=== PATIENT | male | born 1965 | race Caucasian/White ===

== ENCOUNTER 2025-04-25 19:53 | Emergency (ER) | payer MEDICARE, SELFPAY ==
--- OUTSIDE RECORDS SUMMARY | 2001-02-12 05:56 | XMS_ITS | Continuity of Care Document ---
Author Name [facility] Organization [facility] Care Team Providers Care Heel Packer Name Role Phone [facility] Unavailable Unavailable Problems Combined list of problems from Department of Defense and Veterans Affairs facilities. It does not include entries that were removed or entered in error. Problem Status Onset Date Problem Type Date of Resolution Comments Source Sensorineural hearing loss Active Condition [facility] Allergies, Adverse Reactions, Alerts Combined list of allergies from Department of Defense and Veterans Affairs facilities. It does not include entries that were removed or entered in error. Substance Category Reaction Severity Reaction type Status Date Reported Comments Source IBUPROFEN Propensity to adverse reactions to drug (finding) active 02/12/2001 [facility]
--- NOTE | ~2025-04-25 | XR_ITS ---
CLINICAL HISTORY: CP, SOB --- Additional Notes or Special Instructions: EKG + bloodwork first 2022 Chest X-ray, 2 Views COMPARISON: None provided FINDINGS: No consolidation. Mild bibasilar atelectasis. No pleural effusion. No pneumothorax. No cardiomegaly. No acute fracture. IMPRESSION: No acute findings. This document has been electronically signed by: Bartolo Morfin MD on 04/25/2025 21:36:26
[2025-04-25 20:11] VITALS: BP 181/118; PULSE 87; RESP 16; TEMP 37.2; O2SAT 96; BMI 45.9
--- NOTE | 2025-04-25 20:12 | ED.URI ---
HPI - URI/Sore Throat General Chief Complaint: Upper Respiratory Symptoms Stated Complaint: Flu like symptoms/Diarrhea Time Seen by Provider: 04/26/25 04:36 Source: patient and RN notes reviewed Mode of arrival: ambulatory Limitations: no limitations History of Present Illness ED Provider: Dr. Alicia Freeman HPI Narrative: 59-year-old male with extensive past medical history including CAD status post stent placement on Plavix, hypertension, hyperlipidemia, diabetes presenting with flu-like symptoms ongoing for the last several days. Describes global headache, subjective fevers, nonproductive cough, body aches, nausea without vomiting, watery diarrhea. No known sick contacts or travel. No questionable food intake. Had been feeling well previously. Denies dysuria or hematuria. Related Data Previous Rx's ?Medication ?Instructions ?Recorded ondansetron HCl 4 mg tablet 4 mg PO Q8H #10 tabs 04/26/25 Allergies Allergy/AdvReac Type Severity Reaction Status Date / Time No Known Allergies Allergy Verified 04/25/25 20:14 Review of Systems Review of Systems: Yes all other systems are reviewed and are negative (As per HPI) [facility] Past Medical History Attestation statement: The following information was validated with the patient. (HTN, DM, CAD s/p stent placement, HLD, smoker) Social History Social History Smoked in Last 30 Days: No Use of substances other than those prescribed or required for medical reasons: No Advance Directives: No Advance Directives Information Provided: Yes Do you have a plan to hurt others: No Plan Physical Exam Vital Signs: Vital Signs: Last Vital Signs Temp 97.9 F 04/26/25 07:08 Pulse 78 04/26/25 07:08 Resp 16 04/26/25 07:08 BP 155/97 H 04/26/25 07:08 Pulse Ox 94 04/26/25 07:08 O2 Del Method Room Air 04/26/25 07:08 BMI result Body Mass Index 45.9 GENERAL: Ill-Appearing, appears uncomfortable. SKIN: Normal skin color for ethnicity, warm, dry, no rashes noted. HEENT: Normocephalic, atraumatic, no stridor, dry mucous membranes, dentition intact, EOMI, PERRLA. NECK: Soft, supple, full ROM, midline structures nontender, no step-offs, no deformities, no lymphadenopathy. CHEST: Heart regular rhythm, no murmurs, symmetric chest rise and fall. PULMONARY: Clear to auscultation bilaterally, diminished at the bases, no labored breathing, no wheezes/rhales/rhonchi. ABDOMINAL: Soft, protuberant, nontender, positive bowel sounds in all quadrants. : Deferred. MUSCULOSKELETAL: Normal tone, full range of motion, no deformities, no peripheral edema. NEURO: Alert and oriented x3, CN II through XII intact, equal strength and sensation bilateral upper and lower extremities, no focal neurologic deficits. PSYCHIATRIC: Flat affect, fluid speech, good eye contact and appropriate demeanor. Course Course Course Narrative: This is an RME performed by Marc Alvarez CNP: Additional HPI, ROS, PE not included below will be deferred to primary provider. Patient is a 59-year-old male who presents to the emergency department for evaluation of headache, shortness of breath, productive cough, chest pain associated with coughing, nausea without vomiting, diarrhea, body aches over the past few days. Plan; serum labs, ECG, CXR, viral serologies Medications Administered Discontinued Medications Generic Name Dose Route Start Last Admin Trade Name Freq PRN Reason Stop Dose Admin Acetaminophen 650 mg 04/26/25 03:49 04/26/25 03:54 Acetaminophen 325 Mg Tablet PO 04/26/25 03:50 650 mg ONCE ONE Administration Ondansetron HCl 4 mg 04/26/25 04:47 04/26/25 05:07 Ondansetron Odt 4 Mg Tab.Rapdis TRANSLINGU 04/26/25 04:48 4 mg ONCE ONE Administration Medical Decision Making Medical Decision Making [facility] Narrative: Patient presents today with flu-like symptoms. Differential diagnosis includes influenza, coronavirus, pneumonia, upper respiratory infection, among others. Most importantly, this patient is not in any acute respiratory distress. They have normal oxygen levels at room air. I have discussed medication and other home therapies that will help the patient and have discussed strict return precautions. Instructed that symptoms may worsen and the patient might need re-evaluation or even hospitalization in the future, but did not show signs of this at the time of discharge. Differential Diagnosis Differential Diagnoses: The differential diagnosis associated with the presentation includes (As above) Admission/Observation Consideration of admission/observation: Escalation of care including admission/observation considered Lab Data MDM Lab Attestation statement: I reviewed the patient's lab results. Very mildly elevated white blood cell count, otherwise lab work reassuring. Cardiac enzymes are negative. 04/25/25 20:30 04/25/25 20:30 Labs: Lab Results 04/25/25 04/26/25 Range/Units 20:30 05:00 WBC 12.4 H (4.8-10.8) X10*3/uL RBC 5.70 (4.60-5.80) X10*6/uL Hgb 17.3 (14.0-18.0) g/dl Hct 47.4 (42.0-52.0) % MCV 83.2 (80.0-98.0) fL MCH 30.4 (27.0-33.0) pg MCHC 36.5 H (31.0-36.0) g/dl RDW 12.7 (11.0-16.0) % Plt Count 181 (160-400) X10*3/uL MPV 9.0 L (9.4-12.4) fL Immature Gran % (Auto) 0.4 (0.0-0.4) % Neut % (Auto) 76.4 H (45-73) % Lymph % (Auto) 12.8 L (20-40) % [place] % (Auto) 6.9 (2-11) % Eos % (Auto) 3.3 (0-4) % Baso % (Auto) 0.2 (0-2) % Lymph # (Auto) 1.6 (1.2-4.9) X10*3/uL [place] # (Auto) 0.9 (0.1-1.2) X10*3/uL Eos # (Auto) 0.4 (0.0-0.4) X10*3/uL Baso # (Auto) 0.0 (0.0-0.2) X10*3/uL Abs Immat Gran (auto) 0.05 H (0.00-0.03) X10*3/uL Absolute Neuts (auto) 9.5 H (2.0-8.3) x10*3/uL Absolute Nucleated RBC 0.000 (0.0-0.012) X10*3/uL Nucleated RBC % (auto) 0.0 (0.0-0.2) /100WBC Sodium 139 (135-145) mmol/L Potassium 4.4 (3.3-5.1) mmol/L Chloride 105 (96-108) mmol/L Carbon Dioxide 25 (22-29) mmol/L Anion Gap 13 (12-20) BUN 13 (9-16) mg/dL Creatinine 1.07 (0.5-1.4) mg/dL Estim Creat Clear Calc 94.4 Estimated GFR > 60 Random Glucose 135 H (60-115) mg/dL Calcium 9.6 (8.4-10.2) mg/dL Magnesium 2.0 (1.6-2.6) mg/dL Total Bilirubin 2.8 H (0.0-1.0) mg/dL AST 22 (5-37) U/L ALT 28 (0-40) U/L Alkaline Phosphatase 95 (39-117) U/L Troponin I High Sens < 2.7 (<3.5-35.0) ng/L B-Natriuretic Peptide 15 (<100) pg/mL Total Protein 7.6 (6.5-8.0) g/dL Albumin 4.8 (3.5-5.0) g/dL Lipase 23 (8-78) U/L Urine Color Yellow Urine Appearance Clear Urine pH 5.5 (5.0-9.0) Ur Specific [place] 1.015 (1.005-1.025) Urine Protein Trace (Neg-Trace) mg/dL Urine Glucose (UA) 250 H (Negative) mg/dL Urine Ketones Negative (Negative) mg/dL Urine Blood Negative (Negative) Urine Nitrite Negative (Negative) Ur Leukocyte Esterase Negative (Negative) Influenza Type A (PCR) NEGATIVE (Negative) Influenza Type B (PCR) NEGATIVE (Negative) RSV RNA Qual (PCR) NEGATIVE (Negative) SARS-CoV-2 RNA (RT-PCR) NEGATIVE (Negative) Independent Interpretation I performed an independent interpretation of an: EKG Interpretation: My independent interpretation of the ECG reveals normal sinus rhythm with rate of 84, normal axis, normal intervals, no ST elevations or depressions to suggest ischemic changes, no previous for comparison Radiology Impression Discussion of test interpretation with radiology: I have reviewed the radiologist's reading. Chronic Conditions Patient?s care impacted by: Diabetes, Hypertension and Other (CAD) Discharge Plan Discharge Clinical Impression: Acute viral syndrome, Diarrhea Patient Disposition: Home, Self-Care Instructions: Viral Syndrome (ED) Additional Instructions: Try to rest over the next several days. Return to the emergency department with any new or worsening symptoms including: Fevers greater than 100? for more than 5 days in a row, neck stiffness associated with a skin rash in severe headaches, inability to tolerate food or drink despite medications, any new symptom that concerns you. Call 911 with any medical emergency. Prescriptions: New ondansetron HCl 4 mg tablet 4 mg PO Q8H Qty: 10 0RF Interventions: ED Discharge Assessment Last Done: 04/26/25 07:08 Discharge Date/Time: 04/26/25 07:09 Print Language: [place]
--- NOTE | 2025-04-25 20:14 | ECG_ITS ---
Test Reason : CP SOB Blood Pressure : */* mmHG Vent. Rate : 84 BPM Atrial Rate : 84 BPM P-R Int : 188 ms QRS Dur : 78 ms QT Int : 354 ms P-R-T Axes : 63 19 16 degrees QTcB Int : 418 ms Normal sinus rhythm Normal ECG No previous ECGs available Referred By: Yessi Alvarez Electronically Signed By: Valeriano Conrad
[2025-04-25 20:35] LABS: MANUAL DIFF FLAG NO
[2025-04-25 20:36] LABS: Hematocrit 47.4 % (42.0-52.0); Hemoglobin 17.3 g/dl (14.0-18.0); Imm Gran Abs Auto 0.05 X10*3/uL (0.00-0.03); Imm Gran Pct Auto 0.4 % (0.0-0.4); Lymphocytes Absolute Auto 1.6 X10*3/uL (1.2-4.9); Mean Corpuscular HGB Conc 36.5 g/dl (31.0-36.0); Mean Corpuscular Hemoglobin 30.4 pg (27.0-33.0); Mean Corpuscular Volume 83.2 fL (80.0-98.0); NRBC Abs Auto 0.000 X10*3/uL (0.0-0.012); NRBC Pct Auto 0.0 /100WBC (0.0-0.2); Platelet Count 181 X10*3/uL (160-400); Red Blood Count 5.70 X10*6/uL (4.60-5.80); White Blood Count 12.4 X10*3/uL (4.8-10.8)
[2025-04-25 20:51] LABS: Alanine Aminotransferase 28 U/L (0-40); Albumin Level 4.8 g/dL (3.5-5.0); Alkaline Phosphatase 95 U/L (39-117); Anion Gap 13 (12-20); Aspartate Amino Transferase 22 U/L (5-37); Blood Urea Nitrogen 13 mg/dL (9-16); Calcium 9.6 mg/dL (8.4-10.2); Carbon Dioxide 25 mmol/L (22-29); Chloride 105 mmol/L (96-108); Creatinine Clr Calc Pharmacy 94.4; Estimated Glomerular Filt Rate > 60; Lipase 23 U/L (8-78); Magnesium 2.0 mg/dL (1.6-2.6); Potassium 4.4 mmol/L (3.3-5.1); Sodium 139 mmol/L (135-145); Total Protein 7.6 g/dL (6.5-8.0)
[2025-04-25 20:56] LABS: B Type Natriuretic Peptide 15 pg/mL (<100)
[2025-04-25 21:01] LABS: Troponin-I High Sensitivity < 2.7 ng/L (<3.5-35.0)
[2025-04-25 21:12] LABS: Resp Syncy Virus RNA Qual PCR NEGATIVE (Negative); SARS COV2 PCR INHOUSE NEGATIVE (Negative)
[2025-04-26 00:34] VITALS: BP 183/111; PULSE 93; RESP 19; TEMP 36.4; O2SAT 95
[2025-04-26 03:07] VITALS: BP 148/90; PULSE 78; RESP 14; TEMP 36.6; O2SAT 95
--- OUTSIDE RECORDS SUMMARY | 2025-04-26 03:10 | XMS_ITS | Clinical Summary ---
Author Organization [address] Address [address] [place] [phone] Phone Care Team Providers Care Colloid Mill Operator Name Role Phone Khoi De Luna MD Primary Care Provider Allergies No known active allergies Medications atorvastatin (LIPITOR) 80 mg tablet Take 1 tablet (80 mg total) by mouth 1 (one) time each day in the evening. 10/06/2024 Active carvediloL (COREG) 12.5 mg tablet Take 1 tablet (12.5 mg total) by mouth 2 (two) times a day. 11/29/2024 Active citalopram (CeleXA) 20 mg tablet Take 1 tablet (20 mg total) by mouth 1 (one) time each day. 10/06/2024 Active ezetimibe (ZETIA) 10 mg tablet Take 1 tablet (10 mg total) by mouth 1 (one) time each day. 10/07/2024 Active lamoTRIgine (LaMICtal) 25 mg tablet Take 1 tablet (25 mg total) by mouth 1 (one) time each day. 10/06/2024 Active metFORMIN (GLUCOPHAGE) 500 mg tablet Take 2 tablets (1,000 mg total) by mouth 2 (two) times a day with meals. 10/06/2024 Active Trulicity 1.5 mg/0.5 mL pen injector injection Inject 0.5 mL (1.5 mg total) under the skin 1 (one) time per week. 2 mL 5 03/24/2025 Active Active Problems Problem Noted Date Diagnosed Date Severe obesity (CMS/HCC V24, CMS/HCC V28) 2024 Bipolar disorder (CMS/HCC V24, CMS/HCC V28) 11/21 Tobacco user 12/16/2024 Type 2 diabetes mellitus wit hout complication, without long-term current use of insulin ([facility] [place], [facility] V28) 12/16/2024 Hypercholesterolemia 12/16/2024 Primary hypertension 12/16/2024 Coronary artery disease due to lipid rich plaque 12/16/2024 Encounters Date Type Department Care Team Description 03/24/2025 9:00 AM EDT Office Visit Adult [address] [phone] Lena Lenug PA Primary hypertension (Primary Dx); Elevated blood pressure reading; Hypercholesterolemia; Type 2 diabetes mellitus without complication, without long-term current use of insulin ([facility] [place], [facility] V28); Coronary artery disease due to lipid rich plaque; Bipolar affective disorder, current episode mixed, current episode severity unspecified ([facility] [place], [facility] V28); KIARA (obstructive sleep apnea); Need for hepatitis C screening test; Screening for HIV (human immunodeficiency virus); Screening PSA (prostate specific antigen); Colon cancer screening 03/17/2025 Telephone Adult [address] [phone] Khoi De Luna MD Advice Only; c-pap machine 02/08/2025 3:45 PM EDT Consult Orthopedic Surgery - [address] [place] [phone] Claribel Garcia PA Primary osteoarthritis of both first carpometacarpal joints (Primary Dx); De Quervain's tenosynovitis 01/27/2025 10:00 AM EDT Office Visit [address] [phone] Cosmo Pulido PA Closed de Quervain's fracture of right wrist, initial encounter (Primary Dx) from Last 3 Months Social History Tobacco Use Types Packs/Day Years Used Date Smoking Tobacco: Every Day Cigarettes Passive Smoke Exposure: Never Smokeless Tobacco: Never Tobacco Cessation:Ready to Q uit: Not Asked; Counseling Given: Not Answered Housing Instability Answer Date Recorde d Are you worried that in the next 2 months you may not have stable housing? No 03/24/2025 Food Access & Nutrition Answer Date Rec orded Do you have access to a vari ety of food including fruits and vegetables? Yes 03/24/2025 Access to Healthcare Answer Date Record ed Within the last 3 months, ho w many times did you visit the emergency department for your medical care? 0 03/24/2025 Health Literacy Answer Date Recorded How often do you need to hav e someone help you when you read instructions, pamphlets, or other written material from your doctor or pharmacy? Never 03/24/2025 Caregiver: How often do you need to have someone help you when you read instructions, pamphlets, or other written material from your doctor or pharmacy? Not on file 03/24/2025 Financial Risk Answer Date Recorded How hard is it for you to pa y for the very basics like food, housing, medical care, and air conditioning / heating? Not very hard 03/24/2025 Transportation Answer Date Recorded Has the lack of transportati on kept you from meetings, work, or from getting things needed for daily living? No Has the lack of transportati on kept you from medical appointments or from getting medications? No 03/24/2025 Social Isolation Answer Date Recorded How often do you feel lonely or isolated from th ose around you? Never 03/24/2025 Food Risk Answer Date Recorded Within the past 12 months we worried whether our food would run out before we got money to buy more. Never true 03/24/2025 Within the past 12 months th e food we bought just didn't last and we didn't have money to get more. Never true 03/24/2025 Dependent Care Answer Date Recorded Do you need help finding or paying for care for your loved ones. For example, early childhood aide classroom or elderly care for an older adult? No 03/24/2025 Education Answer Date Recorded Do you think completing more education or training, like finishing a GED, going to college, or learning a trade, would be helpful for you? No 03/24/2025 Employment and Income Answer Date Recor ded During the last four weeks, have you been actively looking for work? No 03/24/2025 Living Situation Answer Date Recorded What is your living situation? 0 03/24/2025 Sex and Gender Information Value Date Recorded Sex Assigned at Not on file Legal Sex Male 6:58 PM EST Gender Identity Not on file Sexual Orientation Not on file Obstetrics History Last Filed Vital Signs Vital Sign Reading Time Taken Comments Blood Pressure 154/95 03/24/2025 8:50 AM EDT avg. blood pressure. Pulse 83 03/24/2025 8:48 AM EDT Temperature 36.4 C (97.5 F) 03/24/2025 8:48 AM EDT provider recheck Respiratory Rate 15 03/24/2025 8:48 AM EDT Oxygen Saturation 96% 01/27/2025 10: 04 AM EDT Inhaled Oxygen Concentration - - Weight 129 kg (284 lb 3.2 oz) 03/24/2025 8:48 AM EDT Height 167.6 cm (5' 6 ) 03/24/2025 8:48 AM EDT Body Mass Index 45.87 03/24/2025 8:48 AM EDT Plan of Treatment Upcoming Encounters Date Type Department Care Team (Late st Contact Info) Description 06/28/2025 10:00 AM EDT Appointment [facility] [address] [place] [phone] Chaim Barajas DO [address] [id number] 07/15/2025 11:30 AM EDT Office Visit Adult Medicine [facility] [address] [place] [phone] Khoi De Luna MD [address] [place] [address] Health Maintenance Due Date Last Done Comments Diabetes: Annual GFR (Glomer ular Filtration Rate) 1965 Diabetes: Annual Foot Exam 1975 Diabetes: Annual Retina Eye Exam 1975 DTaP,Tdap,and Td Vaccines (1 - Tdap) 1984 Hepatitis B Vaccines (1 of 3 - 19+ 3-dose series) 1984 Pneumococcal Vaccine: 50+ Ye ars (1 of 2 - PCV) 1984 Pneumococcal Vaccine: Pediat rics (0 to 5 Years) and At-Risk Patients (6 to 49 Years) (1 of 2 - PCV) 1984 Zoster Vaccines (1 of 2) 2015 COVID-19 Vaccine ( - 2023-2 5 season) 2024 Cholesterol Screening (Lipid Panel) 12/10/2024 Colorectal Cancer Screening: Colonoscopy 12/10/2024 HIV Screening 12/10/2024 Hepatitis C Screening 12/10/2024 Medicare Annual Wellness Visit 12/10/2024 Diabetes: Annual Urine Albumin-Creatinine Ratio (uACR) 12/16/2024 Diabetes: Blood Sugar Contro l Test (HGBA1C) 12/16/2024 Hypertension/CHF/CAD Annual BMP Blood Test 12/16/2024 Influenza Vaccine (#1) 2025 Depression Screening 03/24/2026 03/24/2025 Social Influencers of Health Screening 03/24/2026 03/24/2025 RSV Immunization Adult Patie nts (1 - 1-dose 75+ series) 2040 HIB Vaccines Aged Out No longer eligi ble based on patient's age to complete this topic HPV Vaccines Aged Out No longer eligi ble based on patient's age to complete this topic Hepatitis A Vaccines Aged Out No long er eligible based on patient's age to complete this topic IPV Vaccines Aged Out No longer eligi ble based on patient's age to complete this topic MMR Vaccines Aged Out No longer eligi ble based on patient's age to complete this topic Meningococcal ACWY Vaccine Aged Out N o longer eligible based on patient's age to complete this topic Meningococcal B Vaccine Aged Out No l onger eligible based on patient's age to complete this topic RSV Immunization Patients Un pilar 20 months Aged Out No longer eligible b ased on patient's age to complete this topic Varicella Vaccines Aged Out No longer eligible based on patient's age to complete this topic Procedures Procedure Name Priority Date/Time Associated Diagnosis Comments XR WRIST 3+ VIEWS BILAT Routine 02/08/2025 3:57 PM EDT Closed de Quervain's fracture of right wrist, initial encounter from Last 3 Months Results * XR Wrist 3+ Views bilat (02/08/2025 3:57 PM EDT) Anatomical Region Laterality Modality Upper Extremities, Wrist Bilateral Compute d Radiography Narrative 02/08/2025 4:34 PM EDT Date of Visit: 02/08/2025 Reason for visit: Bilateral wrist pain Views: AP, lateral, oblique bilateral wrist. Comparison:none Findings: No fracture, dislocation or lytic lesions. Moderate osteoarthritis bilateral thumb CMC joints Impression: Osteoarthritis of bilateral thumb basal joint us Claribel LEIJA IMG XR PROCEDURES Final Resul t from Last 3 Months Insurance * Guarantor: Benjamin Jameson Account Type Relation to Patient Date of Phone Billing Address Personal/Family Self [address] [place] [id number] MEDICARE [place]ICAID [place] Care Teams Colloid Mill Operator Relationship Specialty Start Date End Date Khoi De Luna MD [address] [place] [id number] PCP - General Internal Medicine 07/20/24
[2025-04-26 05:14] LABS: Appearance Urine Clear; Glucose Urine UA 250 mg/dL (Negative); PH 5.5 (5.0-9.0); Specific Gravity - Urine 1.015 (1.005-1.025)
[2025-04-26 06:11] VITALS: BP 155/97; PULSE 78; TEMP 36.5; O2SAT 94
[2025-04-26 07:07] VITALS: O2SAT 99
[2025-04-26 07:08] VITALS: BP 155/97; PULSE 78; RESP 16; TEMP 36.6; O2SAT 94
== END 2025-04-26 07:09 | disposition home or self-care (01) ==
PROVIDERS: Nurse Practitioner Family; Emergency Provider Emergency Medicine
DX: B34.9 Viral infection, unspecified (principal); R19.7 Diarrhea, unspecified; E11.9 Type 2 diabetes mellitus without complications; I10 Essential (primary) hypertension; E78.5 Hyperlipidemia, unspecified; Z03.818 Encounter for observation for suspected exposure to other biological agents ruled out; R06.02 Shortness of breath; R05.9 Cough, unspecified
CPT/HCPCS: 36415; 71046; 80053; 81003; 83690; 83735; 83880; 84484; 85025; 87637; 93005; 99283; 99285

== ENCOUNTER → 2025-04-25 20:14 | Outpatient (BNV) | payer MEDICAID, SELFPAY | PROVIDERS: Visit Provider Radiology Diagnostic Radiology | DX: R07.9 Chest pain, unspecified (principal); R06.02 Shortness of breath | CPT/HCPCS: 71046 ==

== ENCOUNTER → 2025-04-25 20:14 | Outpatient (BNV) | payer MEDICARE, SELFPAY | PROVIDERS: Emergency Provider Emergency Medicine; Visit Provider Internal Medicine Cardiovascular Disease | DX: R06.02 Shortness of breath (principal); R07.9 Chest pain, unspecified | CPT/HCPCS: 93010 ==

== ENCOUNTER 2025-09-12 17:53 | Emergency (ER) | payer MEDICARE, MEDICAID, SELFPAY ==
--- NOTE | ~2025-09-12 | XR_ITS ---
CLINICAL HISTORY: pain 4 views thoracic spine Comparison: None provided Findings: Normal vertebral body alignment. No acute fractures or dislocation. Moderate multilevel spondylosis with disc space narrowing, endplate sclerosis, and osteophytosis most notably of the mid to lower levels. IMPRESSION: No acute findings. Moderate multilevel spondylosis. This document has been electronically signed by: Shabana Clinton MD on 09/12/2025 19:32:06
--- NOTE | ~2025-09-12 | XR_ITS ---
CLINICAL HISTORY: back pain 3 views lumbar spine Comparison: None provided Findings: Normal vertebral body alignment. No acute fractures or dislocation. Moderate DJD at L5-S1, predominantly with facet arthropathy. IMPRESSION: No acute findings. Moderate DJD at L5-S1, predominantly with facet arthropathy. This document has been electronically signed by: Shabana Clinton MD on 09/12/2025 19:28:03
[2025-09-12 18:02] VITALS: BP 182/115; PULSE 83; O2SAT 95
[2025-09-12 18:12] VITALS: BP 174/117; PULSE 81; RESP 20; TEMP 36.2; O2SAT 95; BMI 45.2
--- NOTE | 2025-09-12 18:13 | ED.BACK ---
HPI - Back Pain/Injury General Chief Complaint: Back Pain/Injury Stated Complaint: sudden onset low back pain Time Seen by Provider: 09/12/25 19:43 History of Present Illness ED Provider: Tracie Long HPI Narrative: 59-year-old male with a medical history that is significant for CAD status post stent placement on Plavix, hypertension, hyperlipidemia, diabetes, chronic low back pain and arthritis presents to the ED for evaluation of lower back pain. Patient reports that he was lifting his earlier today and noticed acute onset significant lower back pain, described as a spasm. 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 Pain is located to the bilateral low back, no midline discomfort. No saddle anesthesia. No bowel or bladder incontinence. No numbness, weakness in the legs. Reports he has issues with his knees as well and has meniscal tears on both knees. He denies any urinary complaints such as dysuria, hematuria, urgency or frequency. No fever, chills, recent illnesses. No abdominal pain, nausea or vomiting, chest pain or shortness of breath. Related Data Previous Rx's ?Medication ?Instructions ?Recorded ondansetron HCl 4 mg tablet 4 mg PO Q8H #10 tabs 04/26/25 lidocaine 5 % topical patch 1 patch topical DAILY 15 days #15 09/12/25 (Lidocan IV) ea methocarbamol 500 mg tablet 1,000 mg (2 x 500 mg) PO QID PRN 09/12/25 spasms 5 days #28 tabs Allergies Allergy/AdvReac Type Severity Reaction Status Date / Time No Known Allergies Allergy Verified 09/12/25 18:14 Review of Systems Review of Systems: ROS is otherwise negative unless mentioned in HPI. [facility] Social History Social History Advance Directives: No Advance Directives Information Provided: No Physical Exam Exam: Exam: Nursing notes and vital signs reviewed. Constitutional: Well-appearing, NAD. Alert. Oriented X3. Eyes: EOMI. Neck: Normal inspection. Neck supple. CVS: Pulses normal. Respiratory: No respiratory distress. Abdomen: Soft and nontender. Skin: Skin warm and dry. Normal skin color. Extremities: No lower extremity edema. Moves all extremities. MSK: No C, T, L, S-spine tenderness. ROM intact. 2+ patellar DTRs. Neuro: Oriented X 3. No motor deficit. Vital Signs: Vital Signs: Last Vital Signs Temp 97.1 F 09/12/25 18:12 Pulse 81 09/12/25 18:12 Resp 20 09/12/25 18:12 BP 174/117 H 09/12/25 18:12 Pulse Ox 95 09/12/25 18:12 O2 Del Method Room Air 09/12/25 18:12 BMI result Body Mass Index 45.2 Course Course Course Narrative: This is an RME: Additional HPI, ROS, PE not included below will be deferred to primary provider. RME assessment and note performed by: Ariadne Toscano PA-C This is a [id number], with a hx of CAD status post stent placement on Plavix, hypertension, hyperlipidemia, diabetes, who presents to the ER via EMS with complaints of acute onset back pain. No injury or trauma. Reports pain radiates down his right mid thigh. No urinary or bowel retention or incontinence. No saddle anesthesia. Reports difficulty with walking secondary to the pain. No hx of IVDA Plan: Xrays, further Er eval needed Medications Administered Discontinued Medications Generic Name Dose Route Start Last Admin Trade Name Freq PRN Reason Stop Dose Admin Ketorolac Tromethamine 30 mg 09/12/25 20:15 09/12/25 20:18 Ketorolac Tromethamine 30 Mg/Ml Vial IM 09/12/25 20:16 30 mg ONCE ONE Administration Lidocaine 1 patch 09/12/25 19:58 09/12/25 20:18 Lidocaine 4 % Patch Adh..Patch TRANSDERMA 09/12/25 19:59 1 patch ONCE ONE Administration Protocol Methocarbamol 750 mg 09/12/25 19:58 09/12/25 20:18 Methocarbamol 750 Mg Tablet PO 09/12/25 19:59 750 mg ONCE ONE Administration Medical Decision Making Medical Decision Making MDM Narrative: Well-appearing male, NAD, answering all questions appropriately. Reports that his pain has become more severe today. Does not radiate down the back of the legs, low clinical suspicion for sciatica. He tells me it has been worse after lifting his at home. 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 He does have bilateral lower back pain on exam, tenderness on both sides of the musculoskeletal regions but no midline tenderness. He has no red flag complaints. 2+ patellar DTRs. He was given a Toradol injection while in the ED, as well as a muscle relaxer, and Lidoderm patch with good effect. Plan to discharge home with these medications and outpatient follow up. Patient is agreeable to plan of care, provided return precautions to the ED. Differential Diagnosis Differential Diagnoses: The differential diagnosis associated with the presentation includes Musculoskeletal back pain, cauda equina, cord compression, sciatica Admission/Observation Consideration of admission/observation: Escalation of care including admission/observation considered (not indicated) Independent Interpretation I performed an independent interpretation of an: Plain X-Ray Interpretation: I have reviewed the patient's imaging and agree with the radiologist's findings. Radiology Impression Discussion of test interpretation with radiology: I have reviewed the radiologist's reading. Radiologist Impression: Lumbar Spine XR IMPRESSION: No acute findings. Moderate DJD at L5-S1, predominantly with facet arthropathy. Thoracic Spine XR IMPRESSION: No acute findings. Moderate multilevel spondylosis. Independent Historian None External Record Review External record reviewed: Other (ER visits) Chronic Conditions Patient?s care impacted by: Hypertension and Other (CAD) Social Determinants Patient?s care significantly limited by Social Determinants of Health including: Problems related to primary support group Discharge Plan Discharge Clinical Impression: Strain of lumbar region Qualifiers: Encounter type: initial encounter Qualified Code(s): S39.012A - Strain of muscle, fascia and tendon of lower back, initial encounter Patient Disposition: Home, Self-Care Instructions: Muscle Strain (DC), Back Pain (ED) Additional Instructions: As we discussed, the x-ray of her thoracic spine shows no acute findings but does show moderate multilevel spondylosis, and the x-ray of your lumbar spine, your lower back shows evidence of moderate DJD, degenerative joint disease, at L5-S1, predominantly with facet arthropathy. It is important that you follow up outpatient with Orthopedics regarding this finding. I have listed them on your paperwork below for your convenience. Given the pain radiates and causes muscle spasm, I provided you with a prescription for a muscle relaxer called Robaxin, as well as Lidoderm patches. You may use these in conjunction with Tylenol, ibuprofen [id number]. Please follow up with orthopedics within 1 week. With any worsening complaints at any time, seek re-evaluation in the ED. Prescriptions: New methocarbamol 500 mg tablet 1,000 mg PO QID PRN (Reason: spasms) 5 Days Qty: 28 0RF lidocaine [Lidocan IV] 5 % adhesive patch,medicated 1 patch topical DAILY 15 Days Qty: 15 0RF Rx Instructions: leave on most painful area for up to 12 hrs No Action ondansetron HCl 4 mg tablet 4 mg PO Q8H Qty: 10 0RF Referrals: [facility] [Provider Group] Print Language: Yakut
[2025-09-12] MEDS: Lidocaine 4 % Patch ADH..PATCH 1 PATCH TRANSDERMA (20:18)
[2025-09-12 20:33] VITALS: BP 156/77; PULSE 77; RESP 18; TEMP 36.6; O2SAT 96
--- OUTSIDE RECORDS SUMMARY | 2025-09-12 20:39 | XMS_ITS | Clinical Summary ---
Author Organization [address] Address [address] [place] [phone] Phone Care Team Providers Care Painter And Decorator Name Role Phone Khoi De Luna MD Primary Care Provider Allergies No known active allergies Medications atorvastatin (LIPITOR) 80 mg tablet Take 1 tablet (80 mg total) by mouth 1 (one) time each day in the evening. 4 Active carvediloL (COREG) 12.5 mg tablet Take 1 tablet (12.5 mg total) by mouth 2 (two) times a day. 5 Active ezetimibe (ZETIA) 10 mg tablet Take 1 tablet (10 mg total) by mouth 1 (one) time each day. 4 Active lamoTRIgine (LaMICtal) 25 mg tablet Take 1 tablet (25 mg total) by mouth 1 (one) time each day. 4 Active metFORMIN (GLUCOPHAGE) 500 mg tablet Take 2 tablets (1,000 mg total) by mouth 2 (two) times a day with meals. 4 Active Trulicity 1.5 mg/0.5 mL pen injector injection Inject 0.5 mL (1.5 mg total) under the skin 1 (one) time per week. 2 mL 5 5 Active Additional Information Patient not taking.Reported on 08/26/2025 citalopram (CeleXA) 20 mg tablet Take 1 tablet (20 mg total) by mouth 1 (one) time each day. 90 tablet 5 Active polyethylene glycol (Golytely) 236-22.74-6.74 -5.86 gram solution Take 4L by mouth once for one dose. May substitue any PEG. Starting at 2PM the day before your procedure drink 1 8oz glasses at your own pace until you complete half of the gallon. Finish 2nd half of the gallon at 8PM. 4000 mL 5 Active bisacodyL (DULCOLAX) 5 mg EC tablet Take 2 tablets by mouth right before beginning bowel prep. See instructions provided by the office 2 tablet 5 Active nitroglycerin (NITROSTAT) 0.[address] 1 tablet (0.4 mg total) under the tongue every 5 (five) minutes if needed for chest pain. Active Active Problems Problem Noted Date Diagnosed Date Severe obesity ([facility] [place], [facility] V28) 2024 Bipolar disorder ([facility] [place], [facility] V28) 11/21 Tobacco user 12/16/2024 Type 2 diabetes mellitus wit hout complication, without long-term current use of insulin ([facility] [place]24, [facility] V28) 12/16/2024 Hypercholesterolemia 12/16/2024 Primary hypertension 12/16/2024 Coronary artery disease due to lipid rich plaque 12/16/2024 Encounters Date Type Department Care Team Description 06/30/2025 Telephone Adult Medicine [address] [phone] Khoi De Luna MD 06/13/2025 Telephone Gastroenterology [facility] [address] [place] [address] Chaim Barajas DO from Last 3 Months Social History Tobacco [...] Record ed Within the last 3 months, kimberly llamas many times did you visit the emergency [...] your loved ones. For example, early childhood educator aide or elderly care for an older adult? [...] Date Recorded What is your living situation? Unrecognized valu e 03/24/2025 Sex and Gender Information Value Date [...] EDT Inhaled Oxygen Concentration - - Weight 127 kg (280 lb) 08/26/2025 2:00 PM EST Height 167.6 cm (5' 6 ) 08/26/2025 2:00 PM EST Body Mass Index 45.19 08/26/2025 2:00 PM EST Plan of Treatment Upcoming Encounters Date Type Department Care Team (Late st Contact Info) Description 09/30/2025 1:15 PM EST Office Visit Adult Medicine [facility] [address] [place], [place] [phone] Khoi De Luna MD [address] [place], [place] Health Maintenance Due Date Last Done Comments Colorectal Cancer Screening: Colonoscopy 1965 Diabetes: Annual GFR (Glomer ular Filtration Rate) 1965 Diabetes: Annual Foot Exam 1975 Diabetes: Annual Retina Eye Exam 1975 DTaP,Tdap,and Td Vaccines (1 - Tdap) 1984 Hepatitis B Vaccines (1 of 3 - 19+ 3-dose series) 1984 Pneumococcal Vaccine: 50+ Ye ars (1 of 2 - PCV) 1984 RSV Immunization Adult Patie nts (1 - Risk 50-74 years 1-dose series) 2015 Zoster Vaccines (1 of 2) 2015 Cholesterol Screening (Lipid Panel) 12/10/2024 HIV Screening 12/10/2024 Hepatitis C Screening 12/10/2024 Medicare Annual Wellness Visit 12/10/2024 Diabetes: Annual Urine Albumin-Creatinine Ratio (uACR) 12/16/2024 Diabetes: Blood Sugar Contro l Test (HGBA1C) 12/16/2024 Hypertension/CHF/CAD Annual BMP Blood Test 12/16/2024 COVID-19 Vaccine (1 - 2024-2 6 season) 2025 Influenza Vaccine (#1) 2025 Social Influencers of Health Screening 03/24/2026 03/24/2025 Depression Screening Completed 03/24/2025 HIB Vaccines Aged Out No longer eligi [...] on patient's age to complete this topic Insurance MEDICARE [place]ICAID [place] Care Teams Painter And Decorator Relationship Specialty Start Date End Date Khoi De Luna MD [address] [place] [address] PCP - General Internal Medicine 07/20/24
== END 2025-09-12 20:36 | disposition home or self-care (01) ==
PROVIDERS: Emergency Provider Emergency Medicine; PCP Internal Medicine
DX: S39.012A Strain of muscle, fascia and tendon of lower back, initial encounter (principal); X50.0XXA Overexertion from strenuous movement or load, initial encounter; Y93.F2 Activity, caregiving, lifting; Y92.9 Unspecified place or not applicable; I10 Essential (primary) hypertension; E78.5 Hyperlipidemia, unspecified; E11.9 Type 2 diabetes mellitus without complications; G89.29 Other chronic pain
CPT/HCPCS: 72072; 72100; 96372; 99283; 99284; J1885

== ENCOUNTER → 2025-09-12 18:17 | Outpatient (BNV) | payer MEDICARE, MEDICAID, SELFPAY | PROVIDERS: Emergency Provider Emergency Medicine; PCP Internal Medicine; Visit Provider Student in an Organized Health Care Education/Training Program | DX: M47.814 Spondylosis without myelopathy or radiculopathy, thoracic region (principal); M47.817 Spondylosis without myelopathy or radiculopathy, lumbosacral region; M51.379 Other intervertebral disc degeneration, lumbosacral region without mention of lumbar back pain or lower extremity pain | CPT/HCPCS: 72072; 72100 ==

== ENCOUNTER 2025-09-18 16:51 | Emergency (ER) | payer MEDICARE, MEDICAID, SELFPAY ==
--- NOTE | ~2025-09-18 | CT_ITS ---
CLINICAL HISTORY: Question dissection chest pain going to the back CT angiography chest, abdomen and pelvis with contrast. 3-D postprocessing. Comparison: CT - CT ANGIO CHEST AORTA - 09/18/25 19:24 EST Findings: Great vessels, thoracoabdominal aorta, mesenteric/renal arteries, and iliofemoral arteries are patent without aneurysm, dissection, hemodynamically significant stenoses, or occlusion. The visualized thyroid and mediastinum are unremarkable. The heart is normal size. Bibasilar atelectatic/dependent changes. Status post cholecystectomy. No intra or extrahepatic ductal dilation. Left kidney upper pole 5.8 cm cyst. No hydronephrosis or nephrolithiasis. Remainder of the solid organs are within normal limits. No bowel obstruction, pneumoperitoneum, or pneumatosis. Pelvic contents unremarkable. Normal appendix. No acute fractures. IMPRESSION: 1. No systemic arterial aneurysm or dissection. 2. No acute pulmonary embolus. 3. Status post cholecystectomy. 4. Left kidney upper pole 5.8 cm cyst. This document has been electronically signed by: Shabana Clinton MD on 09/18/2025 21:33:36
--- NOTE | ~2025-09-18 | CT_ITS ---
CLINICAL HISTORY: Question dissection chest pain going to the lower CT angiography chest, abdomen and pelvis with contrast. 3-D postprocessing. Comparison: CT - CT ANGIO CHEST AORTA - 09/18/25 19:24 EST Findings: Great vessels, thoracoabdominal aorta, mesenteric/renal arteries, and iliofemoral arteries are patent without aneurysm, dissection, hemodynamically significant stenoses, or occlusion. The visualized thyroid and mediastinum are unremarkable. The heart is normal size. Bibasilar atelectatic/dependent changes. Status post cholecystectomy. No intra or extrahepatic ductal dilation. Left kidney upper pole 5.8 cm cyst. No hydronephrosis or nephrolithiasis. Remainder of the solid organs are within normal limits. No bowel obstruction, pneumoperitoneum, or pneumatosis. Pelvic contents unremarkable. Normal appendix. No acute fractures. IMPRESSION: 1. No systemic arterial aneurysm or dissection. 2. No acute pulmonary embolus. 3. Status post cholecystectomy. This document has been electronically signed by: Shabana Clinton MD on 09/18/2025 21:34:34
[2025-09-18 17:05] VITALS: BP 167/111; PULSE 78; O2SAT 96
[2025-09-18 17:16] VITALS: BP 146/103; PULSE 76; RESP 18; TEMP 36.7; O2SAT 96; BMI 45.2
--- NOTE | 2025-09-18 17:36 | ECG_ITS ---
Test Reason : cp Blood Pressure : */* mmHG Vent. Rate : 72 BPM Atrial Rate : 72 BPM P-R Int : 208 ms QRS Dur : 72 ms QT Int : 378 ms P-R-T Axes : 59 28 1 degrees QTcB Int : 413 ms Normal sinus rhythm Normal ECG When compared with ECG of 25-Apr-2025 20:21, No significant change was found Referred By: Tianna Campos Electronically Signed By: JARRED JEWELL
--- NOTE | 2025-09-18 17:38 | ED.BACK ---
HPI - Back Pain/Injury General Chief Complaint: Back Pain/Injury Stated Complaint: back pain radiating to L shoulder Time Seen by Provider: 09/18/25 17:11 History of Present Illness HPI Narrative: Patient is a 58-year-old male presents today with having lower back pain radiating to the chest. Patient claims the pain is very sharp. Did not help with muscle relaxant. Has a history of the lower back pain in the past. Now is of radiate up the whole back into the chest. Has a history of diabetes, hypertension, high cholesterol, smoking. Patient is slightly overweight with a BMI of 45. In addition patient had had a history of coronary artery disease. Status post stent is on Eliquis. Patient complaining of pain ongoing. Not affected by movement not affected with exertion. Related Data Previous Rx's ?Medication ?Instructions ?Recorded ondansetron HCl 4 mg tablet 4 mg PO Q8H #10 tabs 04/26/25 lidocaine 5 % topical patch 1 patch topical DAILY 15 days #15 09/12/25 (Lidocan IV) ea methocarbamol 500 mg tablet 1,000 mg (2 x 500 mg) PO QID PRN 09/12/25 spasms 5 days #28 tabs Allergies Allergy/AdvReac Type Severity Reaction Status Date / Time No Known Allergies Allergy Verified 09/18/25 17:17 Review of Systems Review of Systems: Positive chest pain. [facility] Past Medical History Attestation statement: The following information was validated with the patient. Social History Social History Smoked in Last 30 Days: Yes Use of substances other than those prescribed or required for medical reasons: No Advance Directives: No Advance Directives Information Provided: No Do you have a plan to hurt others: No Plan Physical Exam Exam: Exam: Appearance: Alert. Oriented X3. No acute distress. Eyes: Pupils equal, round and reactive to light. ENT: Pharynx normal. Neck: Normal inspection. Neck supple. No lymph nodes noted. No crepitus CVS: Normal heart rate and rhythm. Pulses normal. Normal S1 and S2 Respiratory: No respiratory distress. Breath sounds normal. No Wheezing. No rales Abdomen: Soft and nontender. No rigidity. No distention. good BS x4 Skin: Skin warm and dry. Normal skin color. Normal skin turgor. Extremities: No lower extremity edema. Neurovascular intact to all extremities. No Lacerations. No Rash Neuro: Oriented X 3. No motor deficit. No sensory deficit. Moving all extermities. No slurred speech Vital Signs: Vital Signs: Last Vital Signs Temp 97.8 F 09/18/25 20:26 Pulse 76 09/18/25 20:26 Resp 14 09/18/25 20:26 BP 167/86 H 09/18/25 20:26 Pulse Ox 93 09/18/25 20:26 O2 Del Method Room Air 09/18/25 20:26 BMI result Body Mass Index 45.2 Medications Administered Discontinued Medications Generic Name Dose Route Start Last Admin Trade Name Freq PRN Reason Stop Dose Admin Hydromorphone HCl 0.5 mg 09/18/25 17:36 09/18/25 19:29 Hydromorphone Hcl 0.5 Mg/0.5 Ml Syringe IVPUSH 09/18/25 17:37 0.5 mg ONCE ONE Administration Protocol Iohexol 85 ml 09/18/25 19:42 09/18/25 19:43 Iohexol 350 Mg/Ml 100 Ml Infus..Btl IV 09/18/25 19:43 85 ml ONCE ONE Administration Medical Decision Making Medical Decision Making [facility] Narrative: Patient has nonspecific back pain. No bowel urinary incontinence. Claims the back pain now goes to his chest. We did 2 sets of cardiac enzymes they were negative. My interpretation of his EKG showed a sinus rhythm heart rate is 70 HI QRS QTC normal no acute ST segment elevation. Patient's CTA angio chest abdomen pelvis was negative no evidence for dissection no evidence for pneumothorax no evidence for rib fracture history not consistent with PE. Hemoglobin is normal. No bowel urinary incontinence suggest cauda equinus syndrome. Pain most likely musculoskeletal. Will discharge patient home. Differential Diagnosis Differential Diagnoses: The differential diagnosis associated with the presentation includes Dissection, ACS, pneumonia, Admission/Observation Consideration of admission/observation: Escalation of care including admission/observation considered Lab Data [facility] Lab Attestation statement: I reviewed the patient's lab results. 09/18/25 18:36 09/18/25 18:36 Labs: Lab Results 09/18/25 09/18/25 Range/Units 18:36 21:48 WBC 8.0 (4.8-10.8) X10*3/uL RBC 5.48 (4.60-5.80) X10*6/uL Hgb 16.5 (14.0-18.0) g/dl Hct 46.2 (42.0-52.0) % MCV 84.3 (80.0-98.0) fL MCH 30.1 (27.0-33.0) pg MCHC 35.7 (31.0-36.0) g/dl RDW 12.7 (11.0-16.0) % Plt Count 155 L (160-400) X10*3/uL MPV 9.7 (9.4-12.4) fL Immature Gran % (Auto) 0.5 H (0.0-0.4) % Neut % (Auto) 58.9 (45-73) % Lymph % (Auto) 28.1 (20-40) % Weakley % (Auto) 6.2 (2-11) % Eos % (Auto) 5.9 H (0-4) % Baso % (Auto) 0.4 (0-2) % Lymph # (Auto) 2.2 (1.2-4.9) X10*3/uL Weakley # (Auto) 0.5 (0.1-1.2) X10*3/uL Eos # (Auto) 0.5 H (0.0-0.4) X10*3/uL Baso # (Auto) 0.0 (0.0-0.2) X10*3/uL Abs Immat Gran (auto) 0.04 H (0.00-0.03) X10*3/uL Absolute Neuts (auto) 4.7 (2.0-8.3) x10*3/uL Absolute Nucleated RBC 0.000 (0.0-0.012) X10*3/uL Nucleated RBC % (auto) 0.0 (0.0-0.2) /100WBC Sodium 141 (135-145) mmol/L Potassium 4.3 (3.3-5.1) mmol/L Chloride 108 (96-108) mmol/L Carbon Dioxide 25 (22-29) mmol/L Anion Gap 12 (12-20) BUN 13 (9-16) mg/dL Creatinine 1.04 (0.5-1.4) mg/dL Estim Creat Clear Calc 96.3 Estimated GFR > 60 Random Glucose 112 (60-115) mg/dL Calcium 9.4 (8.4-10.2) mg/dL Total Bilirubin 1.4 H (0.0-1.0) mg/dL Direct Bilirubin 0.3 (0.0-0.5) mg/dL AST 23 (5-37) U/L ALT 29 (0-40) U/L Alkaline Phosphatase 82 (39-117) U/L Troponin I High Sens < 2.7 < 2.7 (<3.5-35.0) ng/L Total Protein 7.1 (6.5-8.0) g/dL Albumin 4.6 (3.5-5.0) g/dL Lipase 28 (8-78) U/L Independent Interpretation I performed an independent interpretation of an: EKG (Sinus heart rate 75 HI QRS QTC normal no acute ST segment elevation) and CT Scan (CT of the chest abdomen pelvis grossly negative) Radiology Impression Discussion of test interpretation with radiology: I have reviewed the radiologist's reading. Chronic Conditions Patient?s care impacted by: Diabetes and Hypertension High cholesterol smoker history of having a sent Discharge Plan Discharge Clinical Impression: Lumbar radiculopathy, Chest pain Instructions: Acute Low Back Pain (ED), Chest Pain (ED) Prescriptions: No Action ondansetron HCl 4 mg tablet 4 mg PO Q8H Qty: 10 0RF methocarbamol 500 mg tablet 1,000 mg PO QID PRN (Reason: spasms) 5 Days Qty: 28 0RF lidocaine [Lidocan IV] 5 % adhesive patch,medicated 1 patch topical DAILY 15 Days Qty: 15 0RF Rx Instructions: leave on most painful area for up to 12 hrs Referrals: Khoi De Luna MD [Primary Care Provider, Internal Medicine] - 09/21/25 Valeriano Conrad MD [Physician, Cardiology] - 09/21/25 Print Language: Romansh
--- OUTSIDE RECORDS SUMMARY | 2025-09-18 18:20 | XMS_ITS | Patient Health Record ---
Author Organization [facility] [facility] [address] [facility] Location Address [address] [place] [address] Care Team Providers Care Masonry Contractor Name Role Phone Jose Alves Primary Care Provider Jamarcus Campbell MD, Ernesto Unavailable Unavailab le Reason For Referral No Information Plan Of Treatment No Information Insurance Providers Payer Name Payer Address Payer Phone Subscriber Number Group Number Insured Name Patient Relationship to Insured Coverage Start Date Coverage End Date [employer] of [place] [address] [place] [id number] Wade Jameson Self - patient is the insured [facility] [address] [place] [address] [id number] Wade Jameson Self - patient is the insured
[2025-09-18 18:47] LABS: MANUAL DIFF FLAG NO
[2025-09-18 19:05] LABS: Alanine Aminotransferase 29 U/L (0-40); Albumin Level 4.6 g/dL (3.5-5.0); Alkaline Phosphatase 82 U/L (39-117); Anion Gap 12 (12-20); Aspartate Amino Transferase 23 U/L (5-37); Blood Urea Nitrogen 13 mg/dL (9-16); Calcium 9.4 mg/dL (8.4-10.2); Carbon Dioxide 25 mmol/L (22-29); Chloride 108 mmol/L (96-108); Creatinine Clr Calc Pharmacy 96.3; Estimated Glomerular Filt Rate > 60; Lipase 28 U/L (8-78); Potassium 4.3 mmol/L (3.3-5.1); Sodium 141 mmol/L (135-145); Total Protein 7.1 g/dL (6.5-8.0)
[2025-09-18 19:13] LABS: Troponin-I High Sensitivity < 2.7 ng/L (<3.5-35.0)
[2025-09-18 19:16] LABS: Hematocrit 46.2 % (42.0-52.0); Hemoglobin 16.5 g/dl (14.0-18.0); Imm Gran Abs Auto 0.04 X10*3/uL (0.00-0.03); Imm Gran Pct Auto 0.5 % (0.0-0.4); Lymphocytes Absolute Auto 2.2 X10*3/uL (1.2-4.9); Mean Corpuscular HGB Conc 35.7 g/dl (31.0-36.0); Mean Corpuscular Hemoglobin 30.1 pg (27.0-33.0); Mean Corpuscular Volume 84.3 fL (80.0-98.0); NRBC Abs Auto 0.000 X10*3/uL (0.0-0.012); NRBC Pct Auto 0.0 /100WBC (0.0-0.2); Platelet Count 155 X10*3/uL (160-400); Red Blood Count 5.48 X10*6/uL (4.60-5.80); White Blood Count 8.0 X10*3/uL (4.8-10.8)
[2025-09-18] MEDS: iohexoL 350 MG/ML 100 ML INFUS..BTL 85 ML IV (19:43)
[2025-09-18 20:26] VITALS: BP 167/86; PULSE 76; RESP 14; TEMP 36.6; O2SAT 93
[2025-09-18 22:16] LABS: Troponin-I High Sensitivity < 2.7 ng/L (<3.5-35.0)
[2025-09-18 22:47] VITALS: BP 182/93; PULSE 77; RESP 18; TEMP 36.7; O2SAT 95
[2025-09-18 22:48] VITALS: BP 182/93; PULSE 77; RESP 18; TEMP 36.7; O2SAT 95
== END 2025-09-18 22:48 | disposition home or self-care (01) ==
PROVIDERS: Emergency Provider Emergency Medicine Emergency Medical Services; PCP Internal Medicine
DX: M54.16 Radiculopathy, lumbar region (principal); R07.9 Chest pain, unspecified; E11.9 Type 2 diabetes mellitus without complications; I10 Essential (primary) hypertension
CPT/HCPCS: 36415; 71275; 74174; 80048; 80076; 83690; 84484; 85025; 93005; 96374; 99284; 99285; J1171; Q9967

== ENCOUNTER → 2025-09-18 17:34 | Outpatient (BNV) | payer MEDICARE, MEDICAID, SELFPAY | PROVIDERS: Emergency Provider Emergency Medicine Emergency Medical Services; PCP Internal Medicine; Visit Provider Student in an Organized Health Care Education/Training Program | DX: Z03.89 Encounter for observation for other suspected diseases and conditions ruled out (principal) | CPT/HCPCS: 71275; 74174 ==

== ENCOUNTER → 2025-09-18 17:36 | Outpatient (BNV) | payer MEDICARE, MEDICAID, SELFPAY | PROVIDERS: Emergency Provider Emergency Medicine Emergency Medical Services; PCP Internal Medicine; Visit Provider Internal Medicine | DX: R07.9 Chest pain, unspecified (principal) | CPT/HCPCS: 93010 ==